=== PATIENT | female | born 1985 | race Caucasian/White ===

== ENCOUNTER 2017-05-08 11:18 | Emergency (ER) | payer OTHER ==
[2017-05-08 11:41] VITALS: RESP 18; TEMP 98.3
--- NOTE | 2017-05-08 12:46 | C.PDOC ---
History Of Present Illness 31 year old female presents to the ED with complaints of bilateral foot pain for four days. Patient states a box of clothes feel on her feet. She denies weakness, numbness, or other complaints at this time. Time Seen by Provider: 05/08/17 11:59 Chief Complaint (Nursing): Lower Extremity Problem/Injury History Per: Patient History/Exam Limitations: no limitations Onset/Duration Of Symptoms: Days (4 days ) Current Symptoms Are (Timing): Still Present Recent travel outside of the [place]: No - Ankle/Foot Description Of Injury: Struck With Object (box fell onto feet ) Past Medical History Reviewed: Historical Data, Nursing Documentation, Vital Signs Vital Signs: Last Vital Signs Temp 98.3 F 05/08/17 11:38 Pulse 72 05/08/17 13:48 Resp 18 05/08/17 13:48 BP 124/72 05/08/17 13:48 Pulse Ox 98 05/08/17 13:48 Surgical History: Appendectomy Family History: States: Unknown Family Hx - Social History Hx Tobacco Use: No Hx Alcohol Use: No Hx Substance Use: No - Immunization History Hx Tetanus Toxoid Vaccination: No Hx Influenza Vaccination: Yes Hx Pneumococcal Vaccination: No Review Of Systems Musculoskeletal: Positive for: Foot Pain (bilateral foot pain) Neurological: Negative for: Weakness, Numbness Physical Exam - Physical Exam Appears: Well, Non-toxic, No Acute Distress Skin: Warm, Dry Head: Atraumatic, Normacephalic Eye(s): bilateral: Normal Inspection Oral Mucosa: Moist Extremity: Normal ROM, Tenderness (b/l great toes proximal phalanx tenderness and mild tenderness to dorsum of bilateral feet, rest of toes are not tender with no ecchymosis/deformities ), No Pedal Edema, No Calf Tenderness, Capillary Refill (good capillary refill, less than two seconds ), No Deformity, No Swelling Neurological/Psych: Oriented x3 ED Course And Treatment O2 Sat by Pulse Oximetry: 99 (RA) - Other Rad Foot xray X-Ray: Viewed By Me, Read By Radiologist Interpretation: Accession No. : [id number]. Patient Name / ID : SABINA MONTOYA / [id number]. Exam Date : 05/08/2017 13:10:31 ( Approved ). Study Comment : Sex / Age : F / 31Y. Creator : Roc Bains MD. Dictator : Roc Bains MD. Information Lead : Public Address Announcer : Roc Bains MD. Approver2 : Report Date : 05/08/2017 14:20:46. My Comment : . Bilateral feet five views. History: Injury. Comparison: None available. Findings: Right foot: Cortical irregularity in a transverse oblique orientation seen at the level of the 4th proximal phalanx concerning for fracture deformity. Clinical correlation to site of pain. Mild hallux valgus deformity. Type 1 os navicularis variant. Left foot: Mild hallux valgus deformity. Type 1 os navicularis variant. Question minimal superior subluxation of the calcaneus in relationship to the cuboid on the lateral view which may be related to patient positioning. Clinical correlation. Impression: Right foot: Cortical irregularity in a transverse oblique orientation seen at the level of the 4th proximal phalanx concerning for fracture deformity. Clinical correlation to site of pain. Mild hallux valgus deformity. Type 1 os navicularis variant. Left foot: Mild hallux valgus deformity. Type 1 os navicularis variant. Question minimal superior subluxation of the calcaneus in relationship to the cuboid on the lateral view which may be related to patient positioning. Clinical correlation. Progress Note: Right and left foot X-ray was ordered and patient was given Motrin. Disposition - Disposition Disposition: HOME/ ROUTINE Disposition Time: 13:28 Condition: STABLE Additional Instructions: Follow up with your PMD and Pack Operator within 1-2 days. Return to ED if feel worse. Prescriptions: Ibuprofen [Motrin Tab] 600 mg PO Q8 #30 tab Instructions: Foot Contusion (ED) Forms: [employer] [facility] (Sinhala), Work Excuse Print Language: TOGOLESE - Clinical Impression Clinical Impression: Foot contusion - PA / SENIOR TECHNICAL WRITER / Resident Statement MD/DO has reviewed & agrees with the documentation as recorded. - Scribe Statement The provider has reviewed the documentation as recorded by the Scribe Leonela Bradford All medical record entries made by the Lashaun were at my direction and personally dictated by me. I have reviewed the chart and agree that the record accurately reflects my personal performance of the history, physical exam, medical decision making, and the department course for this patient. I have also personally directed, reviewed, and agree with the discharge instructions and disposition.
[2017-05-08 13:48] VITALS: BP 124/72; PULSE 72
--- NOTE | 2017-05-08 14:22 | RAD ---
Bilateral feet five views History: Injury. Comparison: None available. Findings: Right foot: Cortical irregularity in a transverse oblique orientation seen at the level of the 4th proximal phalanx concerning for fracture deformity. Clinical correlation to site of pain. Mild hallux valgus deformity. Type 1 os navicularis variant. Left foot: Mild hallux valgus deformity. Type 1 os navicularis variant. Question minimal superior subluxation of the calcaneus in relationship to the cuboid on the lateral view which may be related to patient positioning. Clinical correlation. Impression: Right foot: Cortical irregularity in a transverse oblique orientation seen at the level of the 4th proximal phalanx concerning for fracture deformity. Clinical correlation to site of pain. Mild hallux valgus deformity. Type 1 os navicularis variant. Left foot: Mild hallux valgus deformity. Type 1 os navicularis variant. Question minimal superior subluxation of the calcaneus in relationship to the cuboid on the lateral view which may be related to patient positioning. Clinical correlation.
[2017-05-08 22:42] VITALS: O2SAT 99
== END 2017-05-08 13:54 | disposition home or self-care (01) ==
LOC: C.ER 11:18
DX: S90.32XA Contusion of left foot, initial encounter (principal); S90.31XA Contusion of right foot, initial encounter; W22.8XXA Striking against or struck by other objects, initial encounter

== ENCOUNTER 2017-05-16 19:30 | Emergency (ER) | payer OTHER ==
[2017-05-16 20:00] VITALS: BP 110/75; PULSE 73; RESP 18; TEMP 98.1; O2SAT 96
--- NOTE | 2017-05-16 20:41 | C.PDOC ---
History Of Present Illness 31yo female presents to ED for evaluation of right foot pain mostly located on her right 4th toe sustained after she dropped a heavy box on her foot 2 weeks ago. Patient was seen in the ED on 05/08 and is taking Motrin as prescribed with no relief. Patient states she has not followed up with podiatry. She reports pain is worsening but denies any numbness, tingling or weakness to her foot. She offers no other medical complaints. Time Seen by Provider: 05/16/17 20:03 Chief Complaint (Nursing): Lower Extremity Problem/Injury History Per: Patient History/Exam Limitations: no limitations Current Symptoms Are (Timing): Still Present Past Medical History Reviewed: Historical Data, Nursing Documentation, Vital Signs Vital Signs: Last Vital Signs Temp 98.1 F 05/16/17 19:54 Pulse 73 05/16/17 19:54 Resp 18 05/16/17 19:54 BP 110/75 05/16/17 19:54 Pulse Ox 96 05/16/17 21:41 - Medical History PMH: No Chronic Diseases Surgical History: Appendectomy Family History: States: No Known Family Hx, Unknown Family Hx - Social History Hx Tobacco Use: No Hx Alcohol Use: No Hx Substance Use: No - Immunization History Hx Tetanus Toxoid Vaccination: No Hx Influenza Vaccination: Yes Hx Pneumococcal Vaccination: No Review Of Systems Musculoskeletal: Positive for: Foot Pain (right foot pain) Physical Exam - Physical Exam Additional Physical Exam Comments: Constitutional: No acute distress. WDWN. Head: Normocephalic. Atraumatic. Cardiovascular: Regular rate and rhythm. Chest: No tenderness. Respiratory: Clear to auscultation bilaterally. Musculoskeletal: Dorsum of right foot is ecchymotic with overlay towards 3rd 4th and 5th toes. Right 4th toe with swelling and tenderness. Dorsalis pedis pulses 2+. Normal sensations. Capillary refill < 2 seconds. Neurologic: Alert, no focal deficit. ED Course And Treatment O2 Sat by Pulse Oximetry: 96 (RA) Pulse Ox Interpretation: Normal Medical Decision Making Medical Decision Making: Impression: 31yo female with right foot pain, worsening for past 2 weeks Plan: -- XR Right foot 943 pm pt with fx noted in right 4th toe; 3rd and 4th toes mono taped, ortho post op shoe applied. pt encouraged to f.u with podiatry. Disposition Counseled Patient/Family Regarding: Studies Performed, Diagnosis, Need For Followup, Rx Given - Disposition Referrals: Podiatry Clinic [Outside] Disposition: HOME/ ROUTINE Disposition Time: 21:44 Condition: STABLE Additional Instructions: Use calzado ortopdico para mayor comodidad. Aplique compresas fras a los pies varias veces al da. Mantenga el pie elevado cuando sea posible. [place] ibuprofeno segn las indicaciones. Seguimiento en la clnica de podologa. Prescriptions: Ibuprofen [Motrin] 600 mg PO TID #30 tab Instructions: Toe Fracture (ED) Forms: Gen Discharge Inst Mosotho, [employer] [facility] (Mosotho), Work Excuse - Clinical Impression Clinical Impression: Toe fracture, right - PA / GRAPHIC DESIGN TEACHER / Resident Statement MD/DO has reviewed & agrees with the documentation as recorded. - Scribe Statement The provider has reviewed the documentation as recorded by the Lashaun Nataarjan Provider Attestation: All medical record entries made by the Josephibe were at my direction and personally dictated by me. I have reviewed the chart and agree that the record accurately reflects my personal performance of the history, physical exam, medical decision making, and the department course for this patient. I have also personally directed, reviewed, and agree with the discharge instructions and disposition.
--- NOTE | 2017-05-17 15:28 | RAD ---
Right foot three views History: Fracture. Comparison: None available. Findings: Transverse oblique fracture deformity through the 4th proximal phalanx. Type 1 os navicularis variant. Accessory ossicle adjacent to the cuboid bone laterally. Impression: Transverse oblique fracture deformity through the 4th proximal phalanx.
== END 2017-05-16 22:05 | disposition home or self-care (01) ==
LOC: C.ER 19:30
DX: S92.511A Displaced fracture of proximal phalanx of right lesser toe(s), initial encounter for closed fracture (principal); W20.8XXA Other cause of strike by thrown, projected or falling object, initial encounter; Y93.89 Activity, other specified; Y92.89 Other specified places as the place of occurrence of the external cause

== ENCOUNTER 2017-10-23 00:32 | Emergency (ER) | payer OTHER ==
[2017-10-23 00:40] VITALS: O2SAT 98
[2017-10-23 01:01] LABS: SQUAMOUS EPITHIAL 39 /hpf (0-5); URINE BILIRUBIN NEGATIVE (NEGATIVE); URINE CLARITY Turbid (Clear); URINE GLUCOSE (UA) NORMAL (Normal); URINE LEUKOCYTE ESTERASE 3+ Leu/uL (Negative); URINE PROTEIN 2+ mg/dL (NEGATIVE); URINE UROBILINOGEN NORMAL mg/dL (0.2-1.0); WBC CLUMPS FEW /hpf
[2017-10-23 01:04] LABS: URINE BLOOD 1+ (NEGATIVE); URINE COLOR YELLOW (YELLOW)
[2017-10-23 01:05] LABS: URINE AMORPHOUS SEDIMENT MODERATE /ul (<OCC); URINE BACTERIA FEW (<OCC)
[2017-10-23 01:06] LABS: HCG,QUALITATIVE URINE NEGATIVE (NEGATIVE)
[2017-10-23] MEDS ORDERED: Sodium Chloride 0.9% 1,000 ML IV STA (01:27)
[2017-10-23] MEDS ORDERED: Sodium Chloride 0.9% 1,000 ML ONE (01:48)
[2017-10-23 02:01] LABS: BASO # 0.1 K/uL (0.0-0.2); BASO % 0.4 % (0.0-2.0); EOS # 0.2 K/uL (0.0-0.7); EOS % 1.6 % (0.0-4.0); HEMOGLOBIN 13.1 g/dL (11.0-16.0); MEAN CELL VOLUME 87.5 fL (81.0-99.0); MEAN CORPUSCULAR HEMOGLOBIN 29.7 pg (27.0-31.0); MEAN PLATELET VOLUME 7.9 fL (7.2-11.7); NEUT # 10.7 K/uL (1.8-7.0); PLATELET COUNT 241 K/uL (130-400); RBC 4.41 Mil/uL (3.80-5.20); RED CELL DISTRIBUTION WIDTH 13.1 % (11.5-14.5); WHITE BLOOD COUNT 13.1 K/uL (4.8-10.8)
[2017-10-23 02:15] LABS: BANDS 2 % (0-2); EOSINOPHIL 2 % (0-4); LYMPHOCYTE 9 % (20-40); MONOCYTE 10 % (0-10); NEUTROPHIL 77 % (50-75); PLATELET ESTIMATE NORMAL (NORMAL); TOTAL CELLS COUNTED 100
[2017-10-23 02:16] LABS: ALB/GLOB RATIO 1.1 (1.0-2.1); AMYLASE 91 U/L (30-110); CALCIUM 8.4 mg/dl (8.6-10.4); GFR AFRICAN-AMERICAN > 60; GFR NON-AFRICAN AMERICAN > 60; LIPASE 111 U/L (23-300)
[2017-10-23 02:21] LABS: ALT/SGPT 24 U/L (9-52); AST/SGOT 25 U/L (14-36); BLOOD UREA NITROGEN 12 mg/dL (7-17)
[2017-10-23 04:10] VITALS: BP 102/61; PULSE 98; RESP 18; TEMP 98.1
--- NOTE | 2017-10-23 04:31 | C.PDOC ---
History Of Present Illness 31 year old female presents to the ED c/o epigastric pain associated with vomit and diarrhea for the past day. Patient denies fever, chills, back pain, rash, recent travels, sick contacts. Time Seen by Provider: 10/23/17 01:05 Chief Complaint (Nursing): Abdominal Pain History Per: Patient History/Exam Limitations: no limitations Onset/Duration Of Symptoms: Days Current Symptoms Are (Timing): Still Present Location Of Pain/Discomfort: Epigastric Radiation Of Pain To:: None Quality Of Discomfort: "Pain" Associated Symptoms: Nausea, Vomiting, Diarrhea Exacerbating Factors: None Alleviating Factors: None Recent travel outside of the [place]: No Additional History Per: Patient Abnormal Vaginal Bleeding: No Past Medical History Reviewed: Historical Data, Nursing Documentation, Vital Signs Vital Signs: Last Vital Signs Temp 98.1 F 10/23/17 04:10 Pulse 98 H 10/23/17 04:10 Resp 18 10/23/17 04:10 BP 102/61 10/23/17 04:10 Pulse Ox 98 10/23/17 04:31 - Medical History PMH: No Chronic Diseases Surgical History: Appendectomy Family History: States: Unknown Family Hx - Social History Hx Tobacco Use: No Hx Alcohol Use: No Hx Substance Use: No - Immunization History Hx Tetanus Toxoid Vaccination: No Hx Influenza Vaccination: Yes Hx Pneumococcal Vaccination: No Review Of Systems Constitutional: Negative for: Fever, Chills Cardiovascular: Negative for: Chest Pain Respiratory: Negative for: Cough, Shortness of Breath Gastrointestinal: Positive for: Vomiting, Abdominal Pain, Diarrhea Skin: Negative for: Rash Neurological: Negative for: Weakness, Numbness Physical Exam - Physical Exam Appears: Non-toxic, No Acute Distress Skin: Normal Color, Warm, Dry Head: Atraumatic, Normacephalic Eye(s): bilateral: Normal Inspection Nose: No Discharge Oral Mucosa: Moist Neck: Normal ROM, Supple Chest: Symmetrical Cardiovascular: Rhythm Regular, No Murmur Respiratory: Normal Breath Sounds, No Rales, No Rhonchi, No Wheezing Gastrointestinal/Abdominal: Soft, Tenderness (epigastric), No Guarding, No Rebound, No Other (RUQ tenderness) Extremity: Normal ROM, No Tenderness, No Swelling Neurological/Psych: Oriented x3 Gait: Steady ED Course And Treatment - Laboratory Results Result Diagrams: 10/23/17 01:56 10/23/17 01:56 O2 Sat by Pulse Oximetry: 98 (On RA) Pulse Ox Interpretation: Normal Medical Decision Making Medical Decision Making: Impression: abdominal pain, vomit, diarrhea Plan: * Labs * Urine culture * UA * Bentyl 20 mg PO * Protonix 40 mg IVP * Reglan 10 mg IVP * IV fluids * Zofran 4 mg IVP Patient is resting comfortably, abdomen remains soft, and patient is tolerating PO. Patient feels comfortable going home. Patient will be discharged home. Disposition - Disposition Disposition: HOME/ ROUTINE Disposition Time: 04:29 Condition: IMPROVED Additional Instructions: Follow up with your PMD/Clinic within 1-2 days. Return to ED if feel worse. Prescriptions: Dicyclomine [Bentyl] 20 mg PO TID #30 tab Famotidine [Pepcid] 20 mg PO BID #20 tab Ondansetron ODT [Zofran ODT] 4 mg PO .Q4-6H PRN #20 odt PRN Reason: Nausea/Vomiting Instructions: Viral Gastroenteritis, Adult (DC) Forms: [employer] (Czech) Print Language: HUNGARIAN - Clinical Impression Clinical Impression: Gastroenteritis - PA / BALANCE TRUER / Resident Statement MD/DO has reviewed & agrees with the documentation as recorded. - Scribe Statement The provider has reviewed the documentation as recorded by the Scribe Vinay Harvey All medical record entries made by the Josephibdago were at my direction and personally dictated by me. I have reviewed the chart and agree that the record accurately reflects my personal performance of the history, physical exam, medical decision making, and the department course for this patient. I have also personally directed, reviewed, and agree with the discharge instructions and disposition.
== END 2017-10-23 04:50 | disposition home or self-care (01) ==
LOC: C.ER 00:32
DX: K52.9 Noninfective gastroenteritis and colitis, unspecified (principal)
CPT/HCPCS: 80053; 81001; 82150; 83690; 84703; 85025; 87086; 96361; 96372; 96374; 96375; 99284; C9113; J0500; J2765; J7040